=== PATIENT | male | born 1925 | race Caucasian/White ===

== ENCOUNTER 2016-07-10 12:05 | Emergency (ER) | payer MEDICARE, BC ==
[2016-07-10] MEDS ORDERED: SODIUM CHLORIDE 0.9% 1,000 ML IV STA (13:28)
--- NOTE | 2016-07-10 13:33 | ED ---
General Adult HPI - General Chief complaint: Recheck/Abnormal Lab/Rx Stated complaint: Shaking all over Time Seen by Provider: 07/10/16 13:18 Source: patient, family, RN notes reviewed, old records reviewed Mode of arrival: wheelchair Limitations: no limitations - History of Present Illness Initial comments: This is an 82-year-old out of the ER for evaluation of weakness. Patient presents with weakness, lack of activity decreased appetite and anhedonia ever since passing of his . Patient has history of high blood pressure high cholesterol. Patient has increasing shaking weakness and nocturnal dizziness when getting up to the bathroom at night. No chest pain started with abdominal pain or headache. Patient has been doing with grief ever since passing of his .` - Related Data Home Medications Medication Instructions Recorded Confirmed Simvastatin [Zocor] 40 mg PO DAILY 10/20/13 07/10/16 Spironolactone [Aldactone] 25 mg PO MOWEFR 10/20/13 07/10/16 B-Carotene/C/E/Lut/Mn Cmb 29 1 tab PO BID@0700,1600 10/09/15 07/10/16 [Macuvite with Lutein Tablet] Carbidopa-Levodopa 25-100 mg 1 tab PO QID 07/10/16 07/10/16 [Sinemet 25-100] L.acidoph,Paracasei, B.lactis 1 cap PO DAILY 07/10/16 07/10/16 [Probiotic] LORazepam [Ativan] 0.5 mg PO BID@0700,1200 07/10/16 07/10/16 LORazepam [Ativan] 2 mg PO HS 07/10/16 07/10/16 Melatonin 5 mg PO HS 07/10/16 07/10/16 Oxymetazoline 0.05% Nasl [place] 2 spray EA NOSTRIL BID 07/10/16 07/10/16 [Afrin 0.05% Nasal [place]] Venlafaxine HCl [Effexor XR] 150 mg PO DAILY@1200 07/10/16 07/10/16 Vit A,C & E/Lutein/Minerals 1 tab PO BID 07/10/16 07/10/16 [Ocuvite with Lutein Tablet] Warfarin Sodium 2 mg PO MOFR 07/10/16 07/10/16 Warfarin [Coumadin] 1 mg PO SUTUTHSA 07/10/16 07/10/16 Previous Rx's Medication Instructions Recorded Aspirin 81 mg PO DAILY #30 chewable 11/10/15 Famotidine [Pepcid] 20 mg PO DAILY tab 11/10/15 Allergies Allergy/AdvReac Type Severity Reaction Status Date / Time No Known Allergies Allergy Verified 07/10/16 13:36 Review of Systems ROS Statement: Those systems with pertinent positive or pertinent negative responses have been documented in the HPI. ROS Other: All systems not noted in ROS Statement are negative. Past Medical History Past Medical History: Hyperlipidemia, Hypertension Additional Past Medical History / Comment(s): hypercholesterol History of Any Multi-Drug Resistant Organisms: None Reported Past Surgical History: Hernia Repair, Orthopedic Surgery Past Anesthesia/Blood Transfusion Reactions: No Reported Reaction Past Psychological History: Anxiety, Depression Smoking Status: Former smoker Past Alcohol Use History: None Reported, Rare Past Drug Use History: None Reported - Past Family History Mother Family Medical History: Pulmonary Embolus Father Family Medical History: Cancer General Exam Limitations: no limitations General appearance: alert, in no apparent distress Head exam: Present: atraumatic, normocephalic, normal inspection Eye exam: Present: normal appearance, PERRL, EOMI. Absent: scleral icterus, conjunctival injection, periorbital swelling ENT exam: Present: normal exam, mucous membranes moist Neck exam: Present: normal inspection. Absent: tenderness, meningismus, lymphadenopathy Respiratory exam: Present: normal lung sounds bilaterally. Absent: respiratory distress, wheezes, rales, rhonchi, stridor Cardiovascular Exam: Present: regular rate, normal rhythm, normal heart sounds. Absent: systolic murmur, diastolic murmur, rubs, gallop, clicks GI/Abdominal exam: Present: soft, normal bowel sounds. Absent: distended, tenderness, guarding, rebound, rigid Extremities exam: Present: normal inspection, full ROM, normal capillary refill. Absent: tenderness, pedal edema, joint swelling, calf tenderness Back exam: Present: normal inspection Neurological exam: Present: alert, oriented X3, CN II-XII intact Psychiatric exam: Present: normal affect, normal mood Skin exam: Present: warm, dry, intact, normal color. Absent: rash Course Vital Signs 07/10/16 12:07 Temperature 98.6 F Pulse Rate 64 Respiratory 20 Rate Blood Pressure 216/93 O2 Sat by Pulse 99 Oximetry - Reevaluation(s) Reevaluation #1: 07/10/16 15:08 Consult with family regarding grief and loss, patient to follow-up with his family doctor for further evaluation and management EKG Findings - EKG Comments: EKG Findings:: EKG shows A. fib rate of 72, QRS 80, QTC 451 Medical Decision Making - Medical Decision Making 89 Male to ER for evaluation. Patient presented with grief and loss, weakness and dizziness, mild dehydration, patient has elevated troponin although it's none consequential and lower than his baseline troponin. Otherwise patient's lab work and x-ray looked negative, flu is negative, urine is negative, patient can be discharged home - Lab Data Result diagrams: 07/10/16 13:49 07/10/16 13:49 Lab Results 07/10/16 07/10/16 07/10/16 Range/Units 13:49 13:49 13:49 WBC 7.1 (3.8-10.6) k/uL RBC 3.96 L (4.30-5.90) m/uL Hgb 12.2 L (13.0-17.5) gm/dL Hct 37.8 L (39.0-53.0) % MCV 95.5 (80.0-100.0) fL MCH 30.9 (25.0-35.0) pg MCHC 32.4 (31.0-37.0) g/dL RDW 14.2 (11.5-15.5) % Plt Count 218 (150-450) k/uL Neutrophils % 69 % Lymphocytes % 20 % Monocytes % 6 % Eosinophils % 2 % Basophils % 1 % Neutrophils # 4.9 (1.3-7.7) k/uL Lymphocytes # 1.4 (1.0-4.8) k/uL Monocytes # 0.5 (0-1.0) k/uL Eosinophils # 0.2 (0-0.7) k/uL Basophils # 0.0 (0-0.2) k/uL Sodium 141 (137-145) mmol/L Potassium 3.7 (3.5-5.1) mmol/L Chloride 106 (98-107) mmol/L Carbon Dioxide 25 (22-30) mmol/L Anion Gap 10 mmol/L BUN 28 H (9-20) mg/dL Creatinine 0.91 (0.66-1.25) mg/dL Est GFR (MDRD) Af Amer >60 (>60 ml/min/1.73 sqM) Est GFR (MDRD) Non-Af >60 (>60 ml/min/1.73 sqM) Glucose 91 (74-99) mg/dL Calcium 9.5 (8.4-10.2) mg/dL Phosphorus 2.9 (2.5-4.5) mg/dL Magnesium 1.9 (1.6-2.3) mg/dL Total Bilirubin 0.6 (0.2-1.3) mg/dL AST 23 (17-59) U/L ALT 14 L (21-72) U/L Alkaline Phosphatase 91 (38-126) U/L Total Creatine Kinase 56 (55-170) U/L CK-MB (CK-2) 1.5 (0.0-2.4) ng/mL CK-MB (CK-2) Rel Index 2.7 Troponin I 0.047 H* (0.000-0.034) ng/mL Total Protein 7.9 (6.3-8.2) g/dL Albumin 4.1 (3.5-5.0) g/dL TSH 0.753 (0.465-4.680) mIU/L Urine Color Urine Appearance (Clear) Urine pH (5.0-8.0) Ur Specific [place] (1.001-1.035) Urine Protein (Negative) Urine Glucose (UA) (Negative) Urine Ketones (Negative) Urine Blood (Negative) Urine Nitrate (Negative) Urine Bilirubin (Negative) Urine Urobilinogen (<2.0) mg/dL Ur Leukocyte Esterase (Negative) Influenza Type A RNA (Not Detectd) Influenza Type B (PCR) (Not Detectd) 07/10/16 07/10/16 Range/Units 13:49 13:54 WBC (3.8-10.6) k/uL RBC (4.30-5.90) m/uL Hgb (13.0-17.5) gm/dL Hct (39.0-53.0) % MCV (80.0-100.0) fL MCH (25.0-35.0) pg MCHC (31.0-37.0) g/dL RDW (11.5-15.5) % Plt Count (150-450) k/uL Neutrophils % % Lymphocytes % % Monocytes % % Eosinophils % % Basophils % % Neutrophils # (1.3-7.7) k/uL Lymphocytes # (1.0-4.8) k/uL Monocytes # (0-1.0) k/uL Eosinophils # (0-0.7) k/uL Basophils # (0-0.2) k/uL Sodium (137-145) mmol/L Potassium (3.5-5.1) mmol/L Chloride (98-107) mmol/L Carbon Dioxide (22-30) mmol/L Anion Gap mmol/L BUN (9-20) mg/dL Creatinine (0.66-1.25) mg/dL Est GFR (MDRD) Af Amer (>60 ml/min/1.73 sqM) Est GFR (MDRD) Non-Af (>60 ml/min/1.73 sqM) Glucose (74-99) mg/dL Calcium (8.4-10.2) mg/dL Phosphorus (2.5-4.5) mg/dL Magnesium (1.6-2.3) mg/dL Total Bilirubin (0.2-1.3) mg/dL AST (17-59) U/L ALT (21-72) U/L Alkaline Phosphatase (38-126) U/L Total Creatine Kinase (55-170) U/L CK-MB (CK-2) (0.0-2.4) ng/mL CK-MB (CK-2) Rel Index Troponin I (0.000-0.034) ng/mL Total Protein (6.3-8.2) g/dL Albumin (3.5-5.0) g/dL TSH (0.465-4.680) mIU/L Urine Color Light Yellow Urine Appearance Clear (Clear) Urine pH 5.0 (5.0-8.0) Ur Specific [place] 1.007 (1.001-1.035) Urine Protein Trace H (Negative) Urine Glucose (UA) Negative (Negative) Urine Ketones Negative (Negative) Urine Blood Negative (Negative) Urine Nitrate Negative (Negative) Urine Bilirubin Negative (Negative) Urine Urobilinogen <2.0 (<2.0) mg/dL Ur Leukocyte Esterase Negative (Negative) Influenza Type A RNA Not Detected (Not Detectd) Influenza Type B (PCR) Not Detected (Not Detectd) - Radiology Data Radiology results: report reviewed, image reviewed Disposition Clinical Impression: Weakness, Weakness, Grief Disposition: HOME SELF-CARE Condition: Good Instructions: Grief and Loss (ED) Referrals: Rajesh Charles MD [Primary Care Provider] - 1-2 days
[2016-07-10 13:58] LABS: Basophils % (A) 1 %; CH 31.4; CHCM 33.1; Eosinophils # (A) 0.2 k/uL (0-0.7); Eosinophils % (A) 2 %; HCT 37.8 % (39.0-53.0); HDW 2.41; HGB 12.2 gm/dL (13.0-17.5); Luc # (Auto) 0.18; Luc % (Auto) 3; Lymphocytes # (A) 1.4 k/uL (1.0-4.8); Lymphocytes % (A) 20 %; MCH 30.9 pg (25.0-35.0); MCHC 32.4 g/dL (31.0-37.0); MCV 95.5 fL (80.0-100.0); Mean Platelet Volume 7.7; Monocytes # (A) 0.5 k/uL (0-1.0); Monocytes % (A) 6 %; Neutrophils # (A) 4.9 k/uL (1.3-7.7); Neutrophils % (A) 69 %; RBC 3.96 m/uL (4.30-5.90); RDW 14.2 % (11.5-15.5); WBC 7.1 k/uL (3.8-10.6); WBC (Perox) 7.32
[2016-07-10 14:09] LABS: Appearance,Urine Clear (Clear); Bilirubin,Urine Negative (Negative); Glucose,Urine (UA) Negative (Negative); Ketones,Urine Negative (Negative); Leukocyte Esterase,Urine Negative (Negative); Nitrite,Urine Negative (Negative); Protein,Urine Trace (Negative); Specific Gravity,Urine 1.007 (1.001-1.035); UA Billing (MACRO vs. MICRO) CHEM; Urobilinogen,Urine <2.0 mg/dL (<2.0)
[2016-07-10 14:19] LABS: ALT 14 U/L (21-72); AST 23 U/L (17-59); Alkaline Phosphatase 91 U/L (38-126); Anion Gap 10 mmol/L; Blood Urea Nitrogen 28 mg/dL (9-20); Calcium 9.5 mg/dL (8.4-10.2); Carbon Dioxide 25 mmol/L (22-30); Chloride 106 mmol/L (98-107); Glucose 91 mg/dL (74-99); Magnesium 1.9 mg/dL (1.6-2.3); Non-African American GFR(MDRD) >60 (>60 ml/min/1.73 sqM); Phosphorous 2.9 mg/dL (2.5-4.5); Potassium 3.7 mmol/L (3.5-5.1); Sodium 141 mmol/L (137-145); Total Bilirubin 0.6 mg/dL (0.2-1.3); Total Protein 7.9 g/dL (6.3-8.2)
[2016-07-10 14:31] LABS: Creatine Kinase MB 1.5 ng/mL (0.0-2.4)
[2016-07-10 14:35] LABS: Troponin I 0.047 ng/mL (0.000-0.034)
--- NOTE | 2016-07-10 15:10 | XR ---
EXAMINATION TYPE: XR chest 2V DATE OF EXAM: 07/10/2016 3:05 PM COMPARISON: Prior chest x-ray 2016 2015 HISTORY: Weakness, abnormal chest x-ray TECHNIQUE: Frontal and lateral views of the chest are obtained on 3 images. FINDINGS: There is no focal air space opacity, pleural effusion, or pneumothorax seen. The cardiac silhouette size is stable and enlarged. There are prominent lung volumes. There are overlying cardi ac leads. The osseous structures are intact. IMPRESSION: No acute cardiopulmonary process. Cardiomegaly. Stable exam. Possible COPD.
[2016-07-10] MEDS ORDERED: hydrALAZINE HCL 20 MG/ML 1 ML VIAL IVP STA (15:16)
[2016-07-10 15:18] VITALS: RESP 18; TEMP 97.9
[2016-07-10 15:38] VITALS: BP 166/74; PULSE 58
== END 2016-07-10 15:53 | disposition home or self-care (01) ==
LOC: EC 12:05
DX: F43.21 Adjustment disorder with depressed mood (principal); R53.1 Weakness; E86.0 Dehydration; I10 Essential (primary) hypertension; E78.5 Hyperlipidemia, unspecified; E78.00 Pure hypercholesterolemia, unspecified; F41.9 Anxiety disorder, unspecified; F32.9 Major depressive disorder, single episode, unspecified; Z79.82 Long term (current) use of aspirin; Z79.01 Long term (current) use of anticoagulants; Z79.899 Other long term (current) drug therapy; Z87.891 Personal history of nicotine dependence
CPT/HCPCS: 36415; 93005; 80053; 82550; 82553; 83735; 84100; 84443; 84484; 85025; 81003; 87086; 87502; 71020; 99284; 96374; 96361; J0360

== ENCOUNTER 2016-08-30 08:56 | Emergency (ER) | payer MEDICARE, BC ==
--- NOTE | 2016-08-30 09:50 | ED ---
General Adult HPI - General Chief complaint: ENT Stated complaint: right side ear swelling Time Seen by Provider: 08/30/16 09:23 Source: patient, family, RN notes reviewed Mode of arrival: wheelchair Limitations: physical limitation - History of Present Illness Initial comments: Patient is an 89-year-old male who presents emergency room today with a chief complaint of right-sided ear pain that started last night. He does admit to pain locally to the area. States he noticed it when he was laying down last night. Daughter states she feels like there is some drainage to the area. Patient denies any other complaints or symptoms. Patient denies any recent fever, chills, shortness of breath, chest pain, back pain, abdominal pain, nausea or vomiting, numbness or tingling, dysuria or hematuria, constipation or diarrhea, headaches or visual changes, or any other complaints. - Related Data Home Medications Medication Instructions Recorded Confirmed Simvastatin [Zocor] 40 mg PO DAILY 10/20/13 07/10/16 Spironolactone [Aldactone] 25 mg PO MOWEFR 10/20/13 07/10/16 B-Carotene/C/E/Lut/Mn Cmb 29 1 tab PO BID@0700,1600 10/09/15 07/10/16 [Macuvite with Lutein Tablet] Carbidopa-Levodopa 25-100 mg 1 tab PO QID 07/10/16 07/10/16 [Sinemet 25-100] L.acidoph,Paracasei, B.lactis 1 cap PO DAILY 07/10/16 07/10/16 [Probiotic] LORazepam [Ativan] 0.5 mg PO BID@0700,1200 07/10/16 07/10/16 LORazepam [Ativan] 2 mg PO HS 07/10/16 07/10/16 Melatonin 5 mg PO HS 07/10/16 07/10/16 Oxymetazoline 0.05% Nasl [place] 2 spray EA NOSTRIL BID 07/10/16 07/10/16 [Afrin 0.05% Nasal [place]] Venlafaxine HCl [Effexor XR] 150 mg PO DAILY@1200 07/10/16 07/10/16 Vit A,C & E/Lutein/Minerals 1 tab PO BID 07/10/16 07/10/16 [Ocuvite with Lutein Tablet] Warfarin Sodium 2 mg PO MOFR 07/10/16 07/10/16 Warfarin [Coumadin] 1 mg PO SUTUTHSA 07/10/16 07/10/16 Previous Rx's Medication Instructions Recorded Aspirin 81 mg PO DAILY #30 chewable 11/10/15 Famotidine [Pepcid] 20 mg PO DAILY tab 11/10/15 Amoxicillin 500 mg PO Q8H 10 Days 08/30/16 Jiorzyua-Pfpiytzrm-Qo Otic 2 drops RIGHT EAR TID 7 Days 08/30/16 [Cortisporin Otic Soln] Allergies Allergy/AdvReac Type Severity Reaction Status Date / Time No Known Allergies Allergy Verified 08/30/16 08:59 Review of Systems ROS Statement: Those systems with pertinent positive or pertinent negative responses have been documented in the HPI. ROS Other: All systems not noted in ROS Statement are negative. Past Medical History Past Medical History: Hyperlipidemia, Hypertension Additional Past Medical History / Comment(s): hypercholesterol History of Any Multi-Drug Resistant Organisms: None Reported Past Surgical History: Hernia Repair, Orthopedic Surgery Past Anesthesia/Blood Transfusion Reactions: No Reported Reaction Past Psychological History: Anxiety, Depression Smoking Status: Former smoker Past Alcohol Use History: None Reported, Rare Past Drug Use History: None Reported - Past Family History Mother Family Medical History: Pulmonary Embolus Father Family Medical History: Cancer General Exam - General Exam Comments Initial Comments: General: The patient is awake and alert, in no distress, and does not appear acutely ill. Eye: Pupils are equal, round and reactive to light, extra-ocular movements are intact. No nystagmus. There is normal conjunctiva bilaterally. No signs of icterus. Ears, nose, mouth and throat: There are moist mucous membranes and no oral lesions. Right ear canal does have irritation with some yellow drainage surrounding the canal. Difficult to see bony landmarks behind. Mild tenderness locally to the area. No swelling on the outside is appreciated. Left TM is clear. Neck: The neck is supple, there is no tenderness or JVD. Cardiovascular: There is a regular rate and rhythm. No murmur, rub or gallop is appreciated. Respiratory: Lungs are clear to auscultation, respirations are non-labored, breath sounds are equal. No wheezes, stridor, rales, or rhonchi. Musculoskeletal: Normal ROM, no tenderness. Strength 5/5. Sensation intact. Pulses equal bilaterally 2+. Neurological: A&O x 3. CN II-XII intact, There are no obvious motor or sensory deficits. Coordination appears grossly intact. Speech is normal. Skin: Skin is warm and dry and no rashes or lesions are noted. Psychiatric: Cooperative, appropriate mood & affect, normal judgment. Limitations: physical limitation Course Vital Signs 08/30/16 08:59 Temperature 98.4 F Pulse Rate 63 Respiratory 20 Rate Blood Pressure 192/82 O2 Sat by Pulse 99 Oximetry Medical Decision Making - Medical Decision Making Patient will be started on of both ear drops and antibiotic to cover for urinary infection as he does have evidence for a urinary infection on exam. Advised follow-up the family doctor in the next 2 days. Advised return to emergency room if any symptoms increase or worsen. Patient and daughter at bedside state understanding and agreement with this plan. Disposition Clinical Impression: Acute otitis externa Disposition: HOME SELF-CARE Condition: Good Instructions: Otitis Externa (ED) Additional Instructions: Please use medication as discussed. Please follow-up with family doctor in the next 2 days of symptoms have not improved. Please return to emergency room if the symptoms increase or worsen or for any other concerns. Prescriptions: Amoxicillin 500 mg PO Q8H 10 Days Uiqgicyn-Rmkuapokm-Cv Otic [Cortisporin Otic Soln] 2 drops RIGHT EAR TID 7 Days Time of Disposition: 09:48
[2016-08-30 10:10] VITALS: BP 155/80; PULSE 79; RESP 16; TEMP 97.8
== END 2016-08-30 10:07 | disposition home or self-care (01) ==
LOC: EC 08:56
DX: H60.501 Unspecified acute noninfective otitis externa, right ear (principal); N39.0 Urinary tract infection, site not specified; I10 Essential (primary) hypertension; E78.00 Pure hypercholesterolemia, unspecified; Z87.891 Personal history of nicotine dependence; F41.9 Anxiety disorder, unspecified; F32.9 Major depressive disorder, single episode, unspecified; Z79.01 Long term (current) use of anticoagulants; Z79.899 Other long term (current) drug therapy
CPT/HCPCS: 99283